=== PATIENT | female | born 1945 | race Caucasian/White ===

== ENCOUNTER → 2017-07-27 | Outpatient (CLI) | payer BC ==
[~2017-07-27] MED LIST: BENICAR 20MG TA20 MG PO; DILTIAZEM240 MG PO; EPA1000 MG PO; GABAPENTIN300 MG PO; GLUCOSAMINE PO; LEVOTHYROXIN0.175 MG PO; LORTAB 7.5/5001 TAB PO; RELAFEN750 MG PO; VITAMIN D1000 IU PO; ZOFRAN4 MG PO
== END ==
LOC: MC.RAD 13:40
DX: Z12.31 Encounter for screening mammogram for malignant neoplasm of breast (principal)

== ENCOUNTER 2017-08-26 19:15 | Observation (INO) | payer BC ==
[~2017-08-26] VITALS: Ht 157.5 cm; Wt 129.0 kg
[~2017-08-26 19:15] MED LIST changes: +CARDIZEM CD 24240 MG PO; -DILTIAZEM240 MG PO; +EPA FISH OIL1 SGL PO; -EPA1000 MG PO; -LEVOTHYROXIN0.175 MG PO; +LEVOXYL0.175 MG PO
[2017-08-26 19:39] LABS: BASO # 0.1 (0.0-0.2); BASO % 1.1 % (0.0-2.0); EOS # 0.3 (0.0-0.7); EOS % 4.2 % (0-4.0); GRAN % 53.2 % (42.2-75.2); HEMATOCRIT 47.3 % (37.0-47.0); HEMOGLOBIN 15.8 g/dl (12.5-16.0); LYMPH # 2.5 (1.2-3.4); LYMPH % 32.8 % (20.0-51.0); MEAN CELL VOLUME 93 fl (80.0-100.0); MEAN CORPUSCULAR HEMOGLOBIN 31 pg (27.0-31.0); MEAN CORPUSCULAR HGB CONC 33 g/dl (33.0-37.0); MONO # 0.6 (0.1-0.6); MONO % 8.4 % (1.7-9.3); PLATELET COUNT 150 K/mm3 (130-400); RED BLOOD COUNT 5.08 M/mm3 (4.10-5.30); REDCELL DISTRIBUTION WIDTH-CV 13.8 % (11.5-14.5)
[2017-08-26 19:41] LABS: PROTHROMBIN TIME 11.4 SECONDS (9.7-12.8)
[2017-08-26 19:45] LABS: ALANINE AMINOTRANSFERASE 54 U/L (9-52); ALBUMIN 4.1 gm/dL (3.5-5.0); ALKALINE PHOSPHATASE 57 U/L (50-136); ANION GAP 12 mmol/L (7-16); AST,SGOT 43 U/L (15-37); BILIRUBIN,TOTAL 0.5 mg/dL (0.0-1.0); BLOOD UREA NITROGEN 18 mg/dL (7-17); CALCIUM 9.3 mg/dL (8.4-10.2); CARBON DIOXIDE 23 mmol/L (22-30); CHLORIDE 106 mmol/L (98-107); CREATINE KINASE 76 U/L (30-135); GLUCOSE 86 mg/dL (74-106); LIPASE 106 U/L (23-300); POTASSIUM 3.9 mmol/L (3.4-5.0); SODIUM 141 mmol/L (137-145); TOTAL PROTEIN 6.9 gm/dL (6.4-8.2)
[2017-08-26] MEDS ORDERED: GLUCOPHAGE500 MG/TAB PO (19:50)
[2017-08-26] MEDS ORDERED: HYZAAR 12.5 MG-1 TAB PO (19:51)
[2017-08-26 19:57] LABS: TROPONIN-I < 0.012 ng/mL (0.000-0.034)
[2017-08-26 21:38] VITALS: BP 121/51; PULSE 67; TEMP 98.2
[2017-08-26 23:14] LABS: ALANINE AMINOTRANSFERASE 57 U/L (9-52); ALKALINE PHOSPHATASE 57 U/L (50-136); ANION GAP 12 mmol/L (7-16); AST,SGOT 37 U/L (15-37); BILIRUBIN,TOTAL 0.6 mg/dL (0.0-1.0); BLOOD UREA NITROGEN 18 mg/dL (7-17); CALCIUM 9.2 mg/dL (8.4-10.2); CARBON DIOXIDE 25 mmol/L (22-30); CHLORIDE 105 mmol/L (98-107); CREATININE, serum 0.89 mg/dL (0.52-1.25); GLUCOSE 100 mg/dL (74-106); POTASSIUM 3.8 mmol/L (3.4-5.0); SODIUM 142 mmol/L (137-145); TOTAL PROTEIN 6.8 gm/dL (6.4-8.2)
[2017-08-26 23:26] LABS: TROPONIN-I 3 HR POST INITIAL < 0.012 ng/mL (0.000-0.034)
[2017-08-27] VITALS (8 sets, daily range): BP systolic 108–162; BP diastolic 49–80; PULSE 67–93; TEMP 97.7–98.7
[2017-08-27 07:58] LABS: BASO # 0.1 (0.0-0.2); BASO % 1.2 % (0.0-2.0); EOS # 0.4 (0.0-0.7); EOS % 5.9 % (0-4.0); GRAN # 3.4 (1.4-6.5); GRAN % 53.1 % (42.2-75.2); HEMATOCRIT 44.7 % (37.0-47.0); HEMOGLOBIN 14.6 g/dl (12.5-16.0); LYMPH % 31.3 % (20.0-51.0); MEAN CELL VOLUME 94 fl (80.0-100.0); MEAN CORPUSCULAR HEMOGLOBIN 31 pg (27.0-31.0); MEAN CORPUSCULAR HGB CONC 33 g/dl (33.0-37.0); MEAN PLATELET VOLUME 12.7 fl (7.4-10.4); MONO # 0.5 (0.1-0.6); MONO % 8.2 % (1.7-9.3); PLATELET COUNT 153 K/mm3 (130-400); RED BLOOD COUNT 4.74 M/mm3 (4.10-5.30)
[2017-08-27] MEDS ORDERED: TIAZAC240 MG PO (09:11)
[2017-08-27] MEDS ORDERED: NORCO 325 MG-51 TAB PO (15:57)
[2017-08-27] MEDS ORDERED: FLEXERIL5 MG PO (15:57)
== END 2017-08-27 19:00 | disposition home or self-care (01) ==
LOC: COL.ER 19:15 → MEDICAL 20:34
PROVIDERS: Emergency Medicine; Internal Medicine
DX: R07.89 Other chest pain (principal); E11.9 Type 2 diabetes mellitus without complications; I10 Essential (primary) hypertension; E03.9 Hypothyroidism, unspecified; Z79.84 Long term (current) use of oral hypoglycemic drugs; Z90.710 Acquired absence of both cervix and uterus; Z95.818 Presence of other cardiac implants and grafts; Z87.891 Personal history of nicotine dependence; Z82.49 Family history of ischemic heart disease and other diseases of the circulatory system; I34.0 Nonrheumatic mitral (valve) insufficiency
CPT/HCPCS: 99232-AI; 99239; A9502; G0378; J1650; J2270; J2785; J7030

== ENCOUNTER → 2017-12-09 | Outpatient (RCR) | payer BC, MEDICARE ==
[~2017-12-09] MED LIST changes: +FLEXERIL5 MG PO; +GLUCOPHAGE500 MG/TAB PO; +HYZAAR 12.5 MG-1 TAB PO; +NORCO 325 MG-51 TAB PO; +TIAZAC240 MG PO
== END | disposition home or self-care (01) ==
LOC: WSPT
DX: M48.061 Spinal stenosis, lumbar region without neurogenic claudication (principal); M54.16 Radiculopathy, lumbar region; M21.371 Foot drop, right foot; M17.11 Unilateral primary osteoarthritis, right knee; Z90.710 Acquired absence of both cervix and uterus; Z98.890 Other specified postprocedural states

== ENCOUNTER 2018-01-15 13:15 | Outpatient (RCR) | payer BC, MEDICARE | END 2018-01-15 17:00 | disposition home or self-care (01) | LOC: WSPT 13:15 | DX: M48.061 Spinal stenosis, lumbar region without neurogenic claudication (principal); M21.371 Foot drop, right foot; M25.561 Pain in right knee; M19.90 Unspecified osteoarthritis, unspecified site; R26.89 Other abnormalities of gait and mobility ==

== ENCOUNTER 2018-05-25 11:15 | Outpatient (RCR) | payer BC, MEDICARE | END 2018-05-25 11:49 | disposition home or self-care (01) | LOC: WSPT 11:15 | DX: M48.061 Spinal stenosis, lumbar region without neurogenic claudication (principal) ==

== ENCOUNTER 2019-02-11 14:30 | Outpatient (RCR) | payer BC, MEDICARE | END 2019-02-13 | disposition home or self-care (01) | LOC: WSPT | DX: M48.061 Spinal stenosis, lumbar region without neurogenic claudication (principal); M54.16 Radiculopathy, lumbar region ==

== ENCOUNTER → 2019-04-05 | Outpatient (CLI) | payer BC | LOC: MC.RAD 15:45 | DX: Z12.31 Encounter for screening mammogram for malignant neoplasm of breast (principal) ==

== ENCOUNTER 2019-10-19 15:00 | Outpatient (RCR) | payer BC | END 2019-12-29 | disposition home or self-care (01) | LOC: WSC | DX: M19.041 Primary osteoarthritis, right hand (principal) ==

== ENCOUNTER → 2020-12-19 | Outpatient (CLI) | payer MEDICARE | LOC: MC.RAD 11:45 | DX: Z12.31 Encounter for screening mammogram for malignant neoplasm of breast (principal) ==

== ENCOUNTER 2021-01-01 10:40 | Emergency (ER) | payer MEDICARE ==
[~2021-01-01] VITALS: Ht 160 cm; Wt 136.5 kg
[2021-01-01 10:53] VITALS: TEMP 98.9
[2021-01-01 11:22] LABS: BASO # 0.1 (0.0-0.2); EOS # 0.2 (0.0-0.7); EOS % 2.2 % (0-4.0); GRAN % 69.8 % (42.2-75.2); HEMATOCRIT 49.4 % (37.0-47.0); HEMOGLOBIN 16.5 g/dl (12.5-16.0); LYMPH # 1.4 (1.2-3.4); LYMPH % 19.9 % (20.0-51.0); MEAN CELL VOLUME 90 fl (80.0-100.0); MEAN CORPUSCULAR HEMOGLOBIN 30 pg (27.0-31.0); MEAN CORPUSCULAR HGB CONC 33 g/dl (33.0-37.0); MEAN PLATELET VOLUME 12.5 fl (7.4-10.4); MONO # 0.5 (0.1-0.6); MONO % 6.8 % (1.7-9.3); PLATELET COUNT 156 K/mm3 (130-400); RED BLOOD COUNT 5.48 M/mm3 (4.10-5.30); REDCELL DISTRIBUTION WIDTH-CV 14.1 % (11.5-14.5)
[2021-01-01 11:58] LABS: ALBUMIN 3.8 gm/dL (3.5-5.0); BILIRUBIN,TOTAL 0.4 mg/dL (0.0-1.0); CALCIUM 8.6 mg/dL (8.4-10.2); CREATININE, serum 0.75 (0.52-1.25); POTASSIUM 3.8 mmol/L (3.4-5.0); TOTAL PROTEIN 6.9 gm/dL (6.4-8.2)
[2021-01-01 12:09] LABS: TROPONIN-I 0.021 ng/mL (0.000-0.035)
[2021-01-01 15:20] VITALS: BP 140/79; PULSE 78
== END 2021-01-01 15:20 | disposition home or self-care (01) ==
LOC: COL.ER 10:40
PROVIDERS: Family Medicine
DX: M54.16 Radiculopathy, lumbar region (principal); E11.9 Type 2 diabetes mellitus without complications; I10 Essential (primary) hypertension; E03.9 Hypothyroidism, unspecified; Z91.040 Latex allergy status; Z88.2 Allergy status to sulfonamides; Z79.890 Hormone replacement therapy; Z79.899 Other long term (current) drug therapy; Z79.84 Long term (current) use of oral hypoglycemic drugs

== ENCOUNTER → 2021-01-31 | Outpatient (CLI) | payer MEDICARE | LOC: COL.RAD 07:24 | DX: N28.1 Cyst of kidney, acquired (principal) ==

== ENCOUNTER → 2022-01-10 | Outpatient (CLI) | payer MEDICARE | LOC: MC.RAD 11:00 | DX: Z12.31 Encounter for screening mammogram for malignant neoplasm of breast (principal) ==

== ENCOUNTER 2022-01-20 08:01 | Day surgery (SDC) | payer MEDICARE ==
[2022-01-20] VITALS (255 sets, daily range): BP systolic 112–138; BP diastolic 52–71; PULSE 51–551; TEMP 98; O2SAT 89–100
[~2022-01-20] VITALS: Ht 160 cm; Wt 132.9 kg
[2022-01-20] MEDS ORDERED: LIPITOR20 MG PO (08:32)
[2022-01-20] MEDS ORDERED: AVALIDE 12.5 MG1 TAB PO (08:34)
[2022-01-20] MEDS ORDERED: ASPIRIN 81M81 MG/TA2 PO (08:35)
[2022-01-20 09:07] LABS: HEMATOCRIT 50.6 % (37.0-47.0); HEMOGLOBIN 16.3 g/dl (12.5-16.0); MEAN CELL VOLUME 93 fl (80.0-100.0); MEAN CORPUSCULAR HEMOGLOBIN 30 pg (27-31); MEAN CORPUSCULAR HGB CONC 32 g/dl (33.0-37.0); MEAN PLATELET VOLUME 11.7 fl (7.4-10.4); PLATELET COUNT 177 K/mm3 (130-400); RED BLOOD COUNT 5.45 M/mm3 (4.10-5.30); REDCELL DISTRIBUTION WIDTH-CV 13.8 % (11.5-14.5)
[2022-01-20 09:18] LABS: CALCIUM 9.4 mg/dL (8.4-10.2); CREATININE, serum 0.81 mg/dL (0.57-1.11); POTASSIUM 3.9 mmol/L (3.5-4.5)
[2022-01-20 09:34] LABS: PARTIAL THROMBOPLASTIN TIME 36.2 SECONDS (26.0-37.0)
--- NOTE | 2022-01-20 10:06 | NUR ---
SEE MERGE FOR ALL MEDICATION ADMINISTRATION TIMES, INTRA AND POST SEDATION ASSESSMENTS
--- NOTE | 2022-01-20 10:41 | NUR ---
Received report from VICKIE Shankar pt needed O2 during procedure, pt arrived to [facility] without O2 to see if pt tolerated, pt unable to keep O2 saturation adequately, placed on 2L. pts O2 sat stable now.
--- NOTE | 2022-01-20 12:40 | NUR ---
5MLS OF AIR INADVERTEDLY REMOVED FROM BAND, PLACED 5MLS OF AIR INTO BAND. BLEEDING STOPPED. TR BAND CLEANED OF BLOOD, NOW CLEAR.
--- NOTE | 2022-01-20 13:32 | NUR ---
PT AMBULATES TO [facility] [place] WITH ONE PERSON ASSIST AND ONE CANE, ASSISTED SO THAT PT DOES NOT USE RIGHT WRIST.
--- NOTE | 2022-01-20 15:45 | NUR ---
REMAINDER OF AIR RELEASED FROM TR BAND, THEN TR BAND REMOVED, DRESSING APPLIED, TR BAND REAPPLIED WITHOUT AIR.
--- NOTE | 2022-01-20 16:15 | NUR ---
Discharge education given to pt. Discussed in depth with pt regarding not using her right arm/wrist. 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 Shared with pt and her 2 emergency contacts that pt will not be able to care for her friend while pt is healing. Pt verbalizes understanding. At discharge, pt is escorted via to exit, where one of her support persons meets this nurse and pt. Pt and this nurse go over discharge instructions again to ensure pts safety. Support person shares they "have found care takers for the friend". Pt verbalizes understanding again at this time.
[2022-01-21] VITALS (161 sets, daily range): O2SAT 86–100
== END 2022-01-20 16:15 | disposition home or self-care (01) ==
LOC: COL.CAR 08:01
PROVIDERS: Internal Medicine Cardiovascular Disease
DX: I25.10 Atherosclerotic heart disease of native coronary artery without angina pectoris (principal); I10 Essential (primary) hypertension; I34.0 Nonrheumatic mitral (valve) insufficiency; E78.2 Mixed hyperlipidemia; Z87.891 Personal history of nicotine dependence; Z79.82 Long term (current) use of aspirin; Z79.899 Other long term (current) drug therapy
CPT/HCPCS: C1769; J1644; J2250; J3010

== ENCOUNTER → 2022-02-21 | Outpatient (CLI) | payer MEDICARE ==
[~2022-02-21] MED LIST changes: +ASPIRIN 81M81 MG/TA2 PO; +AVALIDE 12.5 MG1 TAB PO; +LIPITOR20 MG PO
== END ==
LOC: COL.RAD 09:07
DX: K80.20 Calculus of gallbladder without cholecystitis without obstruction (principal)

== ENCOUNTER 2022-03-13 15:00 | Outpatient (RCR) | payer MEDICARE | END 2022-03-16 | disposition home or self-care (01) | LOC: WSPT | DX: M54.16 Radiculopathy, lumbar region (principal) ==

== ENCOUNTER 2022-04-02 11:15 | Outpatient (RCR) | payer MEDICARE | END 2022-04-16 | disposition home or self-care (01) | LOC: WSPT | DX: M54.16 Radiculopathy, lumbar region (principal) ==